=== PATIENT | male | born 2005 | race African-American/Black ===

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

== ENCOUNTER 2024-03-12 15:52 | Emergency (ER) | payer OTHER ==
[~2024-03-12] VITALS: Ht 190.5 cm; Wt 165.0 kg
[~2024-03-12 15:52] MED LIST changes: +CYCL10TA21 MT; +NAPR-1176 MT
[2024-03-12 16:08] VITALS: O2SAT 98
[2024-03-12] MEDS: ACETAMINOPHEN 325MG TABLET PO ONE (21:33)
[2024-03-12] MEDS: DEXAMETHASONE 4MG TABLET PO ONE (21:33)
[2024-03-12] MEDS: KETOROLAC 30MG/ML VIAL IM ONE (21:33)
[2024-03-12] MEDS ORDERED: AMOX1TAB16 MT (22:39)
[2024-03-12 23:19] VITALS: BP 148/94; PULSE 89; RESP 17; TEMP 37.16964; O2SAT 99
== END 2024-03-12 23:21 | disposition home or self-care (01) ==
LOC: ER 15:52
DX: J02.8 Acute pharyngitis due to other specified organisms (principal); Z20.822 Contact with and (suspected) exposure to COVID-19
CPT/HCPCS: 87430; 87070; 87804 ×2; 96372; 99283; 87426; J8540; J1885; Z7610